=== PATIENT | male | born 1940 | race Caucasian/White ===

== ENCOUNTER 2017-05-23 13:30 | Emergency (ER) | payer BC, MEDICARE, OTHER ==
[~2017-05-23 13:30] MED LIST: AMLO10TA2 PO; ASPI81TA11 PO; ATOR40TA16 PO; GLIM2TAB PO; LOSA100T3 PO; METF1000 PO; METO50TA11 PO; OMEP20TA PO; TAMS0.4C4 PO
[2017-05-23 13:43] VITALS: BP 138/70; PULSE 76; RESP 20; TEMP 98; O2SAT 97
[2017-05-23] MEDS ORDERED: OXYC1CAP PO (14:10)
--- NOTE | 2017-05-23 14:59 | PD ---
HPI Chief Complaint: Musculoskeletal Complaint Time Seen by Provider: 14:22 Travel History International Travel<30 days: No Contact w/Intl Traveler<30days: No Traveled to known affect area: No History of Present Illness HPI 76-year-old male presents to the emergency room for evaluation of severe left shoulder pain that started 2 days ago. Patient was doing his rotator cuff exercises for his right shoulder and upon pulling the nadege with his left shoulder felt sharp, severe, stabbing pain that radiated into his neck and down his upper arm. States since that pain has been worsening. Pain is worst when he relaxes his shoulder because it feels as though the muscles are pulling. He took his prescribed oxycodone 2 times today without any relief in symptoms. He called his orthopedic surgeon, Dr. Johnston, who was unable to see him today. The office recommended he come to the emergency room if pain was so severe. Patient states pain is excruciating. PFSH Past Medical History Blood Disorders: No Cancer: Yes (PROSTATE) Cardiovascular Problems: Yes Diabetes: Yes Patient Takes Glucophage: Yes Diminished Hearing: No Endocrine: Yes Gastrointestinal Disorders: Yes GERD: Yes Genitourinary: Yes Hypertension: Yes Immune Disorder: No Implanted Vascular Access Dvce: Yes Musculoskeletal: No Neurologic: No Psychiatric: No Reproductive: No Respiratory: No Radiation Therapy: Yes Past Surgical History Abdominal Surgery: Yes (DOUBLE HERNIA) Joint Replacement: Yes (L KNEE) Other Surgery: Yes (RIGHT ROTATOR CUFF ) Social History Alcohol Use: No Tobacco Use: No Substance Use: No Allergies-Medications (Allergen,Severity, Reaction): Coded Allergies: No Known Allergies (Verified , 10/25/16) Reported Meds & Prescriptions Reported Meds & Active Scripts Active Lidocaine Patch 12 HR (Lidocaine) 5 % Patch 1 Patch TOPICAL DAILY PRN Remove patch after 12 hours Glimepiride 2 Mg Tab 2 Mg PO DAILY Take with breakfast or first main meal Metoprolol Succinate ER 24 HR (Metoprolol Succinate) 50 Mg Tab 50 Mg PO DAILY Losartan-Hydrochlorothiazide 100-12.5 Mg Tab 1 Tab PO DAILY Amlodipine (Amlodipine Besylate) 10 Mg Tab 10 Mg PO DAILY Omeprazole 20 Mg Tab 20 Mg PO DAILY Aspirin EC (Aspirin) 81 Mg Tabdr 81 Mg PO DAILY Atorvastatin (Atorvastatin Calcium) 40 Mg Tab 40 Mg PO HS Metformin (Metformin HCl) 1,000 Mg Tab 1,000 Mg PO BIDPC With meals Reported Oxycodone (Oxycodone HCl) 5 Mg Cap 5 Mg PO Q8H PRN Tamsulosin (Tamsulosin HCl) 0.4 Mg Cap 0.4 Mg PO HS Review of Systems Except as stated in HPI: all other systems reviewed are Neg Physical Exam Narrative GENERAL: Well-nourished, well-developed male in no acute distress. Afebrile. Ambulatory. SKIN: Focused skin assessment warm/dry. No erythema or ecchymosis. HEAD: Normocephalic. EYES: No scleral icterus. No injection or drainage. NECK: Supple, trachea midline. No JVD or lymphadenopathy. CARDIOVASCULAR: Regular rate and rhythm without murmurs, gallops, or rubs. RESPIRATORY: Breath sounds equal bilaterally. No accessory muscle use. MUSCULOSKELETAL: No cyanosis. There is mild to moderate edema of the left clavicle. It is extremely tender to palpation. He has limited range of motion of the left upper extremity secondary to pain. 2+ radial pulse. Radial, ulnar , and median nerves intact. Data Data Last Documented VS Vital Signs Date Time Temp Pulse Resp B/P (MAP) Pulse Ox O2 Delivery O2 Flow Rate FiO2 05/23/17 13:43 98.0 76 20 138/70 (92) 97 Orders Orders Ketorolac Inj (Toradol Inj) (05/23/17 15:00) [facility] Medical Decision Making Medical Screen Exam Complete: Yes Emergency Medical Condition: Yes Medical Record Reviewed: Yes Differential Diagnosis Rotator cuff injury, tendinopathy, tendinitis, tendon rupture, clavicle fracture Narrative Course 76-year-old male presents to the emergency room for evaluation of left shoulder pain after injuring it 2 days ago. He was doing rotator cuff exercises for his right shoulder and upon pulling down on the nadege felt a sharp, severe pain in his left clavicle radiates into his neck and down his humerus. Patient states since then. Has been worsening. He mobilized today but has not otherwise. Home medications are not significantly improving his symptoms. He called his orthopedic surgeon, Dr. Johnston, who could not get him in today. Left upper extremity is neurovascularly intact with 2+ radial pulse. Radial, ulnar, and median nerves intact. Miscarriage motion in shoulder secondary to pain. There is mild edema over the clavicle on extreme tenderness to palpation. Patient was offered an x-ray of the clavicle but declined stating didn't believe that it was broken. Patient was informed he will need an MRI of the shoulder to evaluate for possible rotator cuff injury or tendon rupture which is not retailing performed in the emergency room. He was told to follow up with Dr. Johnston this week if possible or return for worsening symptoms. He was given prescription for lidocaine patches and told to continue taking his prescribed pain medication. He understands and agrees to plan. Diagnosis Primary Impression: Injury of shoulder, left Qualified Codes: S49.92XA - Unspecified injury of left shoulder and upper arm , initial encounter Referrals: Taj Johnston MD Primary Care Physician Additional Instructions: Rest and drink plenty of fluids. Take prescribed medication for pain. Maintain range of motion of the shoulder. Do not keep immobilized or it will worsen symptoms. Apply ice to the affected area for 20 minutes at a time, as needed for pain and swelling. Follow-up with your orthopedic surgeon. Return to the emergency room for worsening symptoms. Scripts Lidocaine Patch 12 HR (Lidocaine Patch 12 HR) 5 % Patch 1 PATCH TOPICAL DAILY Y for PAIN, #1 BOX 0 Refills Remove patch after 12 hours Prov: Vernell Mayes MD 05/23/17 Disposition: 01 DISCHARGE HOME Condition: Stable Tonya Yepez May 23, 2017 14:59
[2017-05-23] MEDS ORDERED: KETOROLAC TROMETHAMINE 60 MG/2 ML (IM) VIAL IM ONE (15:00)
[2017-05-23] MEDS ORDERED: LIDO1PAD52 TOPICAL (15:00)
[2017-06-27] MEDS ORDERED: DEXA4VIA IM (16:22)
[2017-06-27] MEDS ORDERED: KETO60IN6 IM (16:22)
[2017-06-27] MEDS ORDERED: MEDR4PAK PO (16:27)
== END 2017-05-23 15:14 | disposition home or self-care (01) ==
LOC: PHEFT 13:30
DX: S49.92XA Unspecified injury of left shoulder and upper arm, initial encounter (principal); X50.9XXA Other and unspecified overexertion or strenuous movements or postures, initial encounter; Y93.B9 Activity, other involving muscle strengthening exercises
CPT/HCPCS: 96372; 99284; J1885